=== PATIENT | female | born 1965 | race Hispanic/Latino ===

== ENCOUNTER 2024-02-15 08:37 | Observation (INO) | payer SELFPAY ==
[~2024-02-15] VITALS: Ht 170.2 cm; Wt 90.0 kg
[2024-02-15] VITALS (46 sets, daily range): BP systolic 109–178; BP diastolic 66–108
[~2024-02-15 08:37] MED LIST: OFLOXACIN0.3 % OS
--- NOTE | 2024-02-15 08:40 | NUR ---
PT TO ER ROOM 14 VIA WHEELCHAIR.
--- NOTE | 2024-02-15 09:22 | NUR ---
PT COMPLAINS OF WORSENING HEADACHE 10. MD IS MADE AWARE.
[2024-02-15 09:29] LABS: BASO% 0.3 % (0-3); EOS% 3.8 % (0-8); HEMATOCRIT 38.3 % (37.0-47.0); HEMOGLOBIN 12.4 g/dl (12.0-16.0); IMMATURE GRANULOCYTES 0.2 % (0.0-5.0); LYMPH% 29.7 % (15-41); MEAN CELL VOLUME 90.5 fL CALC (80.0-100.0); MEAN CORPUSCULAR HGB 29.3 pG CALC (26.0-32.0); MEAN CORPUSCULAR HGB CONC 32.4 g/dL CAL (32.0-36.0); MONO% 6.3 % (2-13); NEUT# 3.41 thou/uL (2.00-7.15); NEUT% 59.7 % (42-76); RED BLOOD COUNT 4.23 mill/uL (4.20-5.60); RED CELL DISTRI WIDTH 12.6 % (11.5-15.5)
[2024-02-15 09:56] LABS: ALBUMIN 4.1 g/dL (3.2-5.0); ALKALINE PHOSPHATASE 78 u/l (38-126); ANION GAP 10 (6-22 (CALC)); BILIRUBIN, TOTAL 0.7 mg/dL (0.02-1.3); BUN 13 mg/dL (7-17); BUN/CREATININE RATIO 20 (12-20 (CALC)); CARBON DIOXIDE 26 mmol/l (22-30); CHLORIDE 108 mmol/l (95-108); CREATININE 0.7 mg/dL (0.5-1.0); ESTIMATED GFR 101 ML/MIN (>=90 (CALC)); POTASSIUM 4.3 mmol/l (3.5-5.1); SGOT/AST 28 u/l (14-36); SODIUM 140 mmol/l (137-146); TOTAL PROTEIN 7.7 g/dL (6.3-8.2)
--- NOTE | 2024-02-15 10:00 | NUR ---
PT REPORTS TO THIS NURSE SHE HAS HAD BILATERAL LOWER LEG WEAKNESSONGOING X 1 MONTH. PT REPORTS THAT IT HAS GOTTEN WORSE THIS MORNING. PT REPORTS SHE IS UNAWARE IF THE DIZZINESS OR THE WORSENING OF HER WEAKNESS STARTED FIRST. PT REPORTS NO LONGER HAVING ANY DIZZINESS BUT COMLAINS OF CONTINUED HEADCAHE.
--- NOTE | 2024-02-15 10:15 | NUR ---
PT AMBULATE TO CT BATHROOM WITHOUT ASSISTANCE.
[2024-02-15 10:19] LABS: PROTHROMBIN TIME 9.9 SECONDS (9.0-12.5)
[2024-02-15] MEDS ORDERED: MAGNESIUM SULFATE HEPTAHYDRATE 50 ML IV ONE (10:25)
[2024-02-15] MEDS ORDERED: METOCLOPRAMIDE HCL 10 MG/2 ML SDV IV ONE (10:25)
[2024-02-15] MEDS ORDERED: DiphenhydrAMINE HCL 50 MG/ML SDV IV ONE (10:25)
[2024-02-15] MEDS ORDERED: ACETAMINOPHEN 500 MG TAB PO ONE (10:25)
[2024-02-15 10:26] LABS: TSH, 3RD GENERATION 1.48 uIU/mL (0.47 - 4.68)
--- NOTE | 2024-02-15 11:55 | NUR ---
PT TO ER BATHROOM WITH STEADY GAIT. NO DISTRESS NOTED.
[2024-02-15] MEDS ORDERED: ASPIRIN 81 MG/TAB PO ONE (12:10)
[2024-02-15] MEDS ORDERED: HYZAAR1 TA1 PO (12:22)
[2024-02-15] MEDS ORDERED: MAGNESIUM HYDROXIDE 30 ML UDC PO PRN (12:25)
[2024-02-15] MEDS ORDERED: ACETAMINOPHEN 325 MG/TAB PO PRN (12:25)
[2024-02-15] MEDS ORDERED: DEXTROSE 250 ML IV PRN (12:25)
--- NOTE | 2024-02-15 12:36 | NUR ---
PT REPORTS A DECRESE IN HER HEADACHE TO 7/10. PT DENIES ANY CURRENT NEEDS.
[2024-02-15 12:59] LABS: URINE BILIRUBIN - DIPSTICK Negative (NEGATIVE); URINE BLOOD DIPSTICK Negative (NEGATIVE); URINE GLUCOSE - DIPSTICK Negative (NEGATIVE); URINE KETONE Negative (NEGATIVE); URINE LEUK ESTERASE Trace (NEGATIVE); URINE NITRITE - DIPSTICK Negative (Negative); URINE PROTEIN - DIPSTICK Negative (NEG-TRACE); URINE SPECIFIC GRAVITY 1.015; URINE UROBILINOGEN - DIPSTICK 0.2 E.U./dL (0.2)
[2024-02-15 13:02] LABS: URINE COLOR Yellow
--- NOTE | 2024-02-15 13:22 | NUR ---
pt resting inbed. vss. no distress noted.
--- NOTE | 2024-02-15 14:00 | NUR ---
pt report called and given to remy gonsales in icu.
--- NOTE | 2024-02-15 14:15 | NUR ---
PT ARRIVED TO THE UNIT VIA STRETCHER, PT AMBULATED TO THE BED WITH A STEADY GAIT, PT A&O X3, PUPILS PERRL, ABD SOFT AND DISTENDED WITH ACTIVE BOWEL SOUNDS, STRONG RADIAL AND PEDAL PULSES, 20G RAC IV SALINE LOCKED, SKIN IS INTACT, PT ORIENTED TO THE ROOM AND CALL MO SYSTEM, SAFETY MEASURES IN PLACE, CALL MO WITHIN REACH
--- NOTE | 2024-02-15 15:40 | NUR ---
PT RESTING WITH EYES CLOSED, AROUSES EASILY TO VERBAL STIMULI, CALL MO WITHIN REACH
--- NOTE | 2024-02-15 16:32 | NUR ---
VISITOR AT BEDSIDE
--- NOTE | 2024-02-15 17:05 | NUR ---
SETUP ASSISTANCE PROVIDED WITH DINNER TRAY
[2024-02-15] MEDS ORDERED: traMADol HCL 50 MG/TAB PO PRN (17:55)
--- NOTE | 2024-02-15 20:00 | NUR ---
pt assessed neuro status and NIH performed with bots[place]an cards for NIH, with use of language line material inspector number # [id number], NIH 0 and recorded. Pt reports , headach, meds given prev shift pt report improved to a 2, pt reports drinking about 240 mL of water a day laterly , discussioin on dehydration , hot weather and importance of drinking water . Pt given a pitcher of water and cup of water to drink. Pt reports pain from her left hip down her leg when standing. for the past 3 weeks when she is at work. recomended to tell MD in the AM due to possible sciatica or some other process that may need to looked at out pt. pt says the pain comes and gooes in the LEFT leg and LEFT hip posterior above the buttocks region. Pt curretly does not have that pain and is strong all arround he limbs. NIH 0. n cardiac cath rn SR. BP normal see vitals section. afebrile. no slurred speach . no signs or symptoms of stroke noted. PERRLA 3+ brisk. swollow intact no coughing. no loss of sensation in face or any extremity. nonataxia. face equal symmetrical smile and toungue.
[2024-02-15] MEDS ORDERED: ENOXAPARIN SODIUM 40 MG/0.4 ML SYR SC SCH (21:00)
[2024-02-15] MEDS ORDERED: ATORVASTATIN CALCIUM 40 MG/TAB PO SCH (21:00)
--- NOTE | 2024-02-15 22:00 | NUR ---
pt rounded on , resting comfortably. all monitors on NSR, no c/o pain . call neves within reach.
[2024-02-16] VITALS (17 sets, daily range): BP systolic 109–146; BP diastolic 58–99
--- NOTE | 2024-02-16 | NUR ---
pt awoken and examined with language line #[id number] NIH=0, no signs or symptoms of stroke, no pain , resting comfortably. all monitors on , call neves within reach .
--- NOTE | 2024-02-16 02:00 | NUR ---
pt rounded on sleeping comfotably, all needs met , on cadiac monitors, call neves within reach.
--- NOTE | 2024-02-16 04:00 | NUR ---
Pt assessed , and reported having a bad neck ache. , languag line obtained and NIH performed pt having sensativity to light with head and neck ache. language line interpretter #[id number] use for interprettation . pt was able to ans questions pupils PERRLA, with sensativity to light. pt medicated with TYlenol and Tramdol for pain. this had worked for pt earlier in the day yesterday. pt encouraged to drink water. able to ans all questions ALOX4. herrera monitor pain closely. pt now getting labs drawn.
--- NOTE | 2024-02-16 04:34 | NUR ---
pt given ice pack for back of neck pt points to back of neck where the pain is located as per what she stated earlier with the office manager executive assistant. eyes open and seemed more relaxed.
--- NOTE | 2024-02-16 04:39 | NUR ---
pt given a new pitcher of ice water and po water intake recorded , no Nausea or Vomiting , pt appears more relaxed with ice pack behind neck. no fever.
[2024-02-16 04:55] LABS: BASO% 0.3 % (0-3); EOS% 1.6 % (0-8); HEMATOCRIT 38.7 % (37.0-47.0); HEMOGLOBIN 12.8 g/dl (12.0-16.0); IMMATURE GRANULOCYTES 0.1 % (0.0-5.0); LYMPH% 20.6 % (15-41); MEAN CELL VOLUME 90.8 fL CALC (80.0-100.0); MEAN CORPUSCULAR HGB CONC 33.1 g/dL CAL (32.0-36.0); MONO% 5.2 % (2-13); NEUT# 4.89 thou/uL (2.00-7.15); NEUT% 72.2 % (42-76); RED BLOOD COUNT 4.26 mill/uL (4.20-5.60); RED CELL DISTRI WIDTH 12.8 % (11.5-15.5)
[2024-02-16 05:06] LABS: ALBUMIN 3.9 g/dL (3.2-5.0); BILIRUBIN, TOTAL 0.9 mg/dL (0.02-1.3); CREATININE 0.7 mg/dL (0.5-1.0); MAGNESIUM 2.5 mg/dL (1.6-2.3); POTASSIUM 4.3 mmol/l (3.5-5.1); TOTAL PROTEIN 7.4 g/dL (6.3-8.2)
--- NOTE | 2024-02-16 05:34 | NUR ---
pt reassessed BP last BP pt way laying on left arm . BPretaken , normal, pts pain reassessed , headach and neck better , 2/10 pain . all Neuro parameters intact. ALOx4, [place]N , no slurred speech . call neves within reach.
--- NOTE | 2024-02-16 06:37 | NUR ---
pt resting comfortably , after medicated earlier for headache. . all cardiac monitors and alarms on , call neves within reach. plan for MRI today.
--- NOTE | 2024-02-16 07:40 | NUR ---
pt awake in bed; no apparent distress noted; pt offers no complaints; SAMIRA Caruso present at bedside to interpret; pt alert and oriented; denies pain/ love/ neck pain; no n/v noted; resp even and unlabored; lungs clear; skin color wnl; ra; hr reg; strong pulses; no edema noted; sb on monitor; abd soft with bs present; no bm noted per remote mortgage underwriter; no urine to inspect at this time; pt denies pain or burning with urination; #20 to rac saline locked; no redness or edema noted at site; NIH 0; pt denies weakness to left extremities; plan of care/ meds/ MRI explained; call light within reach; will continue to monitor
--- NOTE | 2024-02-16 07:50 | NUR ---
Dr Simms present at bedside to assess pt and discuss plan of care; MS SAMIRA Caruso present at bedside to interpret
[2024-02-16] MEDS ORDERED: LOSARTAN Potassium 50 MG/TAB PO SCH (09:00)
--- NOTE | 2024-02-16 10:14 | NUR ---
awake in recliner; offers no complaints; iv intact; sr on monitor; call light within reach; will continue to monitor
--- NOTE | 2024-02-16 10:40 | NUR ---
pt noted with n/v; emesis basin provided; pt denies headache/ weakness; call light within reach
--- NOTE | 2024-02-16 12:04 | NUR ---
pt awake in bed; offers no complaints; iv intact; sr on monitor; call light within reach
--- NOTE | 2024-02-16 12:14 | NUR ---
Tele Health consult completed with neuro
[2024-02-16] MEDS ORDERED: ASPIRIN EC 81 MG/TAB PO SCH (13:00)
[2024-02-16] MEDS ORDERED: ALUM & MAG HYDROX-SIMETHICONE 30 ML PO PRN (13:25)
--- NOTE | 2024-02-16 13:50 | NUR ---
pt transferred to MRI via wc accompanied by this repairer typewriter in stable condition
--- NOTE | 2024-02-16 15:15 | NUR ---
Dr Simms informed of MRI results; to place DC shortly
--- NOTE | 2024-02-16 16:01 | NUR ---
awake in recliner; offers no complaints; call light within reach; will continue to monitor
[2024-02-16] MEDS ORDERED: HYZAAR1 TA1 PO (16:55)
[2024-02-16] MEDS ORDERED: ADLT ASA LOW81 MG PO (16:55)
[2024-02-16] MEDS ORDERED: ATORVASTATIN CA20 MG PO (16:56)
--- NOTE | 2024-02-16 17:50 | NUR ---
Discharge instructions given. Patient verbalizes understanding of same. Discharged in stable condition via Ambulatory to Home with family. All belongings sent with pt.
== END 2024-02-16 17:50 | disposition home or self-care (01) | DRG 948 ==
LOC: ED 08:37 → EDBD 08:37 → ED 10:14 → ED-I 11:56 → ED 12:24 → ICU 12:25
PROVIDERS: Family Medicine; Nurse Practitioner Family; ADMIT Internal Medicine; ATTEND Internal Medicine
DX: R53.1 Weakness (principal); R51.9 Headache, unspecified; R07.9 Chest pain, unspecified; R42 Dizziness and giddiness; R20.0 Anesthesia of skin; I10 Essential (primary) hypertension; E66.9 Obesity, unspecified; T46.5X6A Underdosing of other antihypertensive drugs, initial encounter; Z91.128 Patient's intentional underdosing of medication regimen for other reason; Z68.31 Body mass index [BMI] 31.0-31.9, adult; Z20.822 Contact with and (suspected) exposure to COVID-19
CPT/HCPCS: J1650; J3475; Q9967